=== PATIENT | female | born 1995 | race African-American/Black ===

== ENCOUNTER 2020-10-19 13:09 | Emergency (ER) | payer SELFPAY ==
[~2020-10-19] VITALS: Ht 195.6 cm; Wt 109.0 kg
[2020-10-19 13:13] VITALS: BP 137/88
[2020-10-19] MEDS ORDERED: DOXY100C2 MT (13:30)
== END 2020-10-19 13:50 | disposition home or self-care (01) ==
LOC: ER 13:40
DX: L73.8 Other specified follicular disorders (principal); Z98.890 Other specified postprocedural states
CPT/HCPCS: 99283